=== PATIENT | male | born 1960 | race Two or more races ===

== ENCOUNTER → 2016-10-31 | Outpatient (REF) | payer OTHER | LOC: M LAB REF 08:58 | PROVIDERS: ATTEND Physician Assistant Medical | DX: J02.9 Acute pharyngitis, unspecified (principal) ==

== ENCOUNTER → 2017-07-20 | Outpatient (REF) | payer OTHER ==
[2017-07-22 14:14] LABS: PSA TOTAL 1.5 ng/mL (0.0-4.0)
== END ==
LOC: M LABDRAW1 15:52
DX: R97.20 Elevated prostate specific antigen [PSA] (principal)

== ENCOUNTER → 2017-10-16 | Outpatient (CLI) | payer BC, OTHER ==
[2017-10-16 17:47] LABS: ALBUMIN 4.2 GM/DL (3.2-5.2); ALBUMIN/GLOBULIN RATIO 1.68 (1.00-1.93); ALKALINE PHOSPHATASE 60 U/L (45-117); ALT/SGPT 29 U/L (12-78); ANION GAP 8 MEQ/L (8-16); AST/SGOT 19 U/L (7-37); BILIRUBIN,TOTAL 0.5 MG/DL (0.2-1.0); BLOOD UREA NITROGEN 16 MG/DL (7-18); CALCIUM LEVEL 8.8 MG/DL (8.5-10.1); CARBON DIOXIDE LEVEL 26 MEQ/L (21-32); CHLORIDE LEVEL 107 MEQ/L (98-107); CHOLESTEROL LEVEL 151 MG/DL (<200); CHOLESTEROL RISK RATIO 2.013 (<5); CREATININE FOR GFR 0.86 MG/DL (0.70-1.30); GLOMERULAR FILTRATION RATE > 60.0 (>56); GLUCOSE, FASTING 90 MG/DL (70-100); HDL CHOLESTEROL 75 MG/DL (>40); LDL CHOLESTEROL 65.6 MG/DL (<100); NON-HDL-C 76 MG/DL; POTASSIUM SERUM 4.6 MEQ/L (3.5-5.1); SODIUM LEVEL 141 MEQ/L (136-145); TOTAL PROTEIN 6.7 GM/DL (6.4-8.2); TRIGLYCERIDES LEVEL 52 MG/DL (<150)
[2017-10-16 17:54] LABS: BASO # 0.1 10^3/uL (0.0-0.2); BASO % 1.3 % (0.0-1.0); EOS # 0.2 10^3/uL (0.0-0.50); EOS % 2.2 % (0.0-3.0); HEMATOCRIT 45.8 % (42.0-52.0); HEMOGLOBIN 14.4 g/dl (13.5-17.5); IMMATURE GRANULOCYTE % 0.5 % (0-3.0); LYMPH # 1.5 10^3/uL (1.5-4.5); LYMPH % 18.5 % (24.0-44.0); MEAN CORPUSCULAR HEMOGLOBIN 26.9 pg (27.0-33.0); MEAN CORPUSCULAR HGB CONC 31.4 g/dl (32.0-36.5); MEAN CORPUSCULAR VOLUME 85.6 fl (80.0-96.0); MONO # 0.7 10^3/uL (0.0-0.8); MONO % 8.8 % (0.0-5.0); NEUTROPHILS # 5.4 10^3/uL (1.8-7.7); NEUTROPHILS % 68.7 % (36.0-66.0); PLATELET COUNT, AUTOMATED 278 10^3/uL (150-450); RED BLOOD COUNT 5.35 10^6/uL (4.30-6.10); RED CELL DISTRIBUTION WIDTH 16.1 % (11.5-14.5); WHITE BLOOD COUNT 7.8 10^3/uL (4.0-10.0)
[2017-10-16 18:08] LABS: ESTIMATED AVERAGE GLUCOSE 111 MG/DL (60-110); HEMOGLOBIN A1c 5.5 %
== END ==
LOC: M WUC 09:58
DX: I10 Essential (primary) hypertension (principal); R73.01 Impaired fasting glucose; J44.9 Chronic obstructive pulmonary disease, unspecified

== ENCOUNTER 2017-12-09 08:33 | Day surgery (SDC) | payer BC, OTHER ==
[~2017-12-09 08:33] MED LIST: PROPOFOL 200 MG/20 ML VIAL As Ordered
[2017-12-09] MEDS ORDERED: NS 1,000 ML IV (10:00)
== END 2017-12-09 11:15 | disposition home or self-care (01) ==
LOC: M OPP 08:33
DX: Z12.11 Encounter for screening for malignant neoplasm of colon (principal); D12.3 Benign neoplasm of transverse colon; Z86.010 Personal history of colon polyps; I10 Essential (primary) hypertension; E78.00 Pure hypercholesterolemia, unspecified; K21.9 Gastro-esophageal reflux disease without esophagitis; F41.9 Anxiety disorder, unspecified; F32.9 Major depressive disorder, single episode, unspecified; F17.210 Nicotine dependence, cigarettes, uncomplicated; Z79.899 Other long term (current) drug therapy
CPT/HCPCS: 45385

== ENCOUNTER → 2018-04-21 | Outpatient (CLI) | payer BC, OTHER ==
[~2018-04-21] MED LIST changes: +AMLO10TA5 PO; +ATOR1TAB19 PO; +DIAZ10TA2 PO; +DULO1CAP3 PO; +OMEP20CA3 PO; -PROPOFOL 200 MG/20 ML VIAL As Ordered; +TRIA37.53 PO
--- NOTE | 2018-04-25 13:40 | REP ---
Low-dose lung cancer screening CT study of the chest: Repeat dictation. History: Nicotine dependence. Comparison is made of multiple prior studies, the most recent of which is from October 08, 2014. The most remote prior CT study is from September 12, 2012. CT findings: Preliminary digital anesthesia resident radiograph shows healing rib fractures on the right. These are confirmed on axial CT images. The lungs are hyperinflated. CT images demonstrate healing or healed rib fractures on the left as well. No significant pulmonary nodule is appreciated. There is a stable lymph node in the aorticopulmonary window region of the mediastinum. No evidence of adenopathy. The exam is otherwise unremarkable. Impression: Multiple old bilateral rib fractures. Hyperinflation consistent with COPD. Lung-RADS category 2 benign findings. Repeat screening exam suggested in 1 year. Electronically Signed by Adi Stock MD 04/25/2018 07:48 P
== END ==
LOC: M RAD 11:03
PROVIDERS: ATTEND Internal Medicine Pulmonary Disease
DX: Z12.2 Encounter for screening for malignant neoplasm of respiratory organs (principal); F17.218 Nicotine dependence, cigarettes, with other nicotine-induced disorders

== ENCOUNTER → 2018-07-13 | Outpatient (REF) | payer OTHER ==
[~2018-07-13] MED LIST changes: +BREO1INH3 INH; +INCR1INH INH
[2018-07-13 15:58] LABS: HEMATOCRIT 42.2 % (42.0-52.0); HEMOGLOBIN 13.6 g/dl (13.5-17.5); MEAN CORPUSCULAR HGB CONC 32.2 g/dl (32.0-36.5); MEAN CORPUSCULAR VOLUME 80.5 fl (80.0-96.0); PLATELET COUNT, AUTOMATED 256 10^3/uL (150-450); RED BLOOD COUNT 5.24 10^6/uL (4.30-6.10); WHITE BLOOD COUNT 6.6 10^3/uL (4.0-10.0)
[2018-07-13 16:09] LABS: INR 0.98; PROTHROMBIN TIME 13.1 SECONDS (12.1-14.4)
[2018-07-13 16:10] LABS: PARTIAL THROMBOPLASTIN TIME 26.9 SECONDS (25.4-37.6)
[2018-07-13 16:25] LABS: POTASSIUM SERUM 4.2 MEQ/L (3.5-5.1)
== END ==
LOC: M LABDRAW1 14:25
PROVIDERS: ATTEND Orthopaedic Surgery Sports Medicine
DX: Z01.812 Encounter for preprocedural laboratory examination (principal)

== ENCOUNTER → 2018-07-14 | Outpatient (CLI) | payer OTHER ==
[2018-07-14 16:52] LABS: ALT/SGPT 63 U/L (12-78); BILIRUBIN,TOTAL 0.4 MG/DL (0.2-1.0); BLOOD UREA NITROGEN 13 MG/DL (7-18); CALCIUM LEVEL 8.8 MG/DL (8.5-10.1); CARBON DIOXIDE LEVEL 30 MEQ/L (21-32); CHLORIDE LEVEL 105 MEQ/L (98-107); CHOLESTEROL LEVEL 131 MG/DL (<200); CHOLESTEROL RISK RATIO 2.015 (<5); CREATININE FOR GFR 0.87 MG/DL (0.70-1.30); GLOMERULAR FILTRATION RATE > 60.0 (>56); GLUCOSE, FASTING 98 MG/DL (70-100); HDL CHOLESTEROL 65 MG/DL (>40); LDL CHOLESTEROL 59 MG/DL (<100); NON-HDL-C 66 MG/DL; POTASSIUM SERUM 4.4 MEQ/L (3.5-5.1); PROSTATIC SPECIFIC AG MONITOR 1.12 NG/ML (< 4.00); SODIUM LEVEL 141 MEQ/L (136-145); TOTAL PROTEIN 6.9 GM/DL (6.4-8.2); TRIGLYCERIDES LEVEL 35 MG/DL (<150)
[2018-07-14 17:28] LABS: BASO # 0.1 10^3/uL (0.0-0.2); BASO % 1.1 % (0.0-1.0); EOS # 0.1 10^3/uL (0.0-0.50); EOS % 1.3 % (0.0-3.0); HEMATOCRIT 43.4 % (42.0-52.0); HEMOGLOBIN 14.1 g/dl (13.5-17.5); MEAN CORPUSCULAR HEMOGLOBIN 26.5 pg (27.0-33.0); MEAN CORPUSCULAR HGB CONC 32.5 g/dl (32.0-36.5); MEAN CORPUSCULAR VOLUME 81.4 fl (80.0-96.0); MONO # 0.5 10^3/uL (0.0-0.8); MONO % 9.9 % (0.0-5.0); NEUTROPHILS # 3.8 10^3/uL (1.8-7.7); NEUTROPHILS % 69.5 % (36.0-66.0); PLATELET COUNT, AUTOMATED 267 10^3/uL (150-450); RED BLOOD COUNT 5.33 10^6/uL (4.30-6.10); WHITE BLOOD COUNT 5.5 10^3/uL (4.0-10.0)
[2018-07-14 17:56] LABS: HEMOGLOBIN A1c 5.9 %
== END ==
LOC: M WUC 11:57
PROVIDERS: ATTEND Family Medicine
DX: I10 Essential (primary) hypertension (principal)

== ENCOUNTER 2018-07-19 13:23 | Day surgery (SDC) | payer OTHER ==
[~2018-07-19] VITALS: Ht 180.3 cm; Wt 112.5 kg
[2018-07-19] MEDS ORDERED: BUPIVACAINE HCL 0.25% 10 ML VIAL ONE (13:24)
[2018-07-19] MEDS ORDERED: LIDOCAINE 1% MDV 20ML VIAL ONE (13:24)
[2018-07-19] MEDS ORDERED: LR 1,000 ML IV ONE (13:30)
[2018-07-19] MEDS ORDERED: PROPOFOL 200 MG/20 ML VIAL As Ordered ONE (13:45)
[2018-07-19] MEDS ORDERED: ROCURONIUM BROMIDE 50 MG/5 ML VIAL As Ordered ONE (13:45)
[2018-07-19] MEDS ORDERED: fentaNYL 100 MCG/2 ML INJECTION (J3010) As Ordered ONE ×2 (13:45→14:01)
[2018-07-19] MEDS ORDERED: ONDANSETRON 4MG/2ML VIAL (J2405) As Ordered ONE (13:45)
[2018-07-19] MEDS ORDERED: LIDOCAINE 2% INJ 100 MG/5 ML SDV (FOR ANES.) As Ordered ONE (13:45)
[2018-07-19] MEDS ORDERED: dexameTHASONE 4 MG/ML 1ML VIAL (J1100) As Ordered ONE (13:45)
[2018-07-19] MEDS ORDERED: MIDAZOLAM INJ 2 MG/2 ML VIAL (J2250) As Ordered ONE ×2 (13:45→14:01)
[2018-07-19] MEDS ORDERED: BUPIVACAINE HCL 0.25% 30 ML VIAL As Ordered ONE ×2 (14:11→14:26)
[2018-07-19] MEDS ORDERED: BUPIVACAINE HCL 0.25% 10 ML VIAL As Ordered ONE (14:14)
[2018-07-19] MEDS ORDERED: MIDAZOLAM INJ 2 MG/2 ML VIAL (J2250) IV ONE ×2 (15:15→15:30)
[2018-07-19] MEDS ORDERED: fentaNYL 100 MCG/2 ML INJECTION (J3010) IV ONE ×2 (15:15→15:30)
[2018-07-19] MEDS ORDERED: BUPIVACAINE/EPIN 0.25% 30 ML VIAL As Ordered ONE (15:15)
[2018-07-19] MEDS ORDERED: METOCLOPRAMIDE INJ 10MG/2ML VIAL (J2765) As Ordered ONE (15:35)
[2018-07-19] MEDS ORDERED: SUGAMMADEX SODIUM 500 MG/5 ML VIAL (BRIDION) As Ordered ONE (17:14)
[2018-07-19] MEDS ORDERED: METOCLOPRAMIDE INJ 10MG/2ML VIAL (J2765) IV PRN (18:00)
[2018-07-19] MEDS ORDERED: PROMETHAZINE INJ 25 MG/ML VIAL (J2550) IV PRN (18:00)
[2018-07-19] MEDS ORDERED: oxyCODONE 5MG TAB PO PRN (18:00)
[2018-07-19] MEDS ORDERED: LR 1,000 ML IV SCH ×2 (18:00)
[2018-07-19] MEDS ORDERED: fentaNYL 100 MCG/2 ML INJECTION (J3010) IV PRN (18:00)
--- NOTE | 2018-07-19 18:52 | RO ---
DATE OF PROCEDURE: 07/19/2018 PREOPERATIVE DIAGNOSIS: Right distal biceps tendon tear. POSTOPERATIVE DIAGNOSIS: Right distal biceps tendon tear. PLANNED PROCEDURE: Right distal biceps repair. PROCEDURE PERFORMED: Right distal biceps repair. SURGEON: Dawit De La Rosa MD CRYSTALIZER: None. HEAT TREATING FURNACE TENDER: Dr. Ford TYPE OF ANESTHESIA: General anesthetic plus a block. 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 We talked about the pros, cons, risks, benefits of going ahead with the repair. I reminded him again of the risks and benefits including but not limited to infection, pain, stiffness, bleeding, neurovascular injury, rerupture, anesthetic complications and . I marked the right arm and we proceeded with the case. DESCRIPTION OF PROCEDURE: The patient was brought to the operating theater. He was placed supine on the operating room table with a radiolucent arm table to the right side. Two grams IV Ancef was administered. General anesthesia was induced. Right upper extremity was prepped and draped the usual sterile fashion. Preoperative time-out was performed to confirm the site and the patient. Sterile 18-inch tourniquet was applied to the right upper extremity. Sterile Esmarch bandage was used to exsanguinate the arm, arm elevated, and the tourniquet inflated to 250 mmHg prior to the end of the case where it was taken down and bleeding checked. Prior to skin incision 7 mL of 0.35% Marcaine with 1, 100,000 epinephrine was also instilled in and around the planned incision site. I began by making a 3 inch incision centered over the volar proximal forearm two fingerbreadths distal to the elbow crease. I carried dissection down through skin and subcutaneous tissue. I identified the superficial venous plexus protected that throughout the case. I undermined this, dissected carefully, identified the distal end of the biceps. It was quite scarred down already and hypertrophic. I removed quite a bit of scar tissue and hypertrophic tissue from around the distal biceps tendon and mobilized it appropriately. I cleaned out the end of the stump as well. I then dissected down distally to the tuberosity. Ligated one crossing vein. I used Gomez retractors on either side of the proximal radius. I fully supinated the forearm as much as possible. I drilled the 3.2 mm spade tip drill tip across one cortex. I checked the position with fluoroscopy. It was a little proximal so I then elevated some more tissue distally with the siddiqui elevator. I then chose my site confirmed with fluoroscopy to be at the tuberosity. Tendon was whip stitched with the FiberLoop from the [employer] kit. With a Jer straight needle to whip stitch the tendon end. Tendon ends were passed through the button for the planned tension slide technique. The suture was locked prior to fully passing the stitch through the tendon, doubled back on itself. The tendon was sized to approximately 7.5 mm. I then overdrilled the wire with 8 mm drill and used the button maintenance and repair worker to insert the button across the distal end cortex. All the bone dust was thoroughly irrigated and suctioned out of the wound. Button was flipped and tendon delivered into the tunnel. I used the tension slide technique. I then passed the 7 mm x 10 mm screw from the Arthrex kit into the hole as well. Tension was down appropriately, fully seated the screw. I then used the Jer needle to pass the suture back out through the tendon one time and then lock it down as well with alternating 1/2 hitches. Sutures were cut short with a scalpel. Wound was again thoroughly irrigated with normal saline. Tourniquet was taken down. No obvious venous or arterial bleeding identified. Subcutaneous tissues closed with interrupted #3-0 Vicryl sutures. Skin was closed with running buried #4-0 Monocryl. Wound was cleaned with wet and dry dressing followed by application of Steri-Strips. Adaptic, sterile 4 x 8 gauze, with sterile cast padding was applied to the entire upper extremity in circumferential fashion. Arm was kept a little bit less flexion than 90 degrees. Plaster of niki back slab was applied the to the dorsal surface the forearm and overwrapped with two 6-inch Jose bandages. The patient was woken up from general anesthetic, transferred off the operating table and taken to postanesthetic care unit in stable condition. All sponge, needle, instrument counts were correct and there were no complications. ESTIMATED BLOOD LOSS: 15 mL. PLAN: The patient is to follow up with myself in clinic in 2 to 3 days, likely this Tuesday at 10 o'clock. He already has an appointment so hopefully I will see him then. He will elevate the arm and remain in a sling. The typical biceps postoperative protocol will be followed.
[2018-07-19 19:20] VITALS: BP 138/82
--- NOTE | 2018-07-20 08:20 | ECGEPIP ---
[facility] Test Date: 2018-07-19 Pat Name: CULLEN PIZARRO Department: Room: - Gender: Male Respiratory Care Assistant: JENNY : 1960 Requested By: JOSE JUAN Pina Order Number: [id number] Reading MD: Steven Hall Measurements Intervals [place] Rate: 64 P: 64 AL: 184 QRS: QRSD: 114 T: 65 QT: 393 QTc: 406 Interpretive Statements SINUS RHYTHM INCOMPLETE RIGHT BUNDLE BRANCH BLOCK Left axis deviation Electronically Signed on 07-20-2018 8:19:49 EDT by Steven Hall
--- NOTE | 2018-07-20 09:03 | REP ---
Right elbow: Single view. Limited study. History: For distal biceps repair. 5 seconds of fluoroscopy time is reported. Findings: A single AP radiograph of the right elbow documents a fixation device at the radial tuberosity and some postoperative gas. Electronically Signed by Adi Stock MD 07/20/2018 03:00 P
== END 2018-07-19 19:22 | disposition home or self-care (01) ==
LOC: M SDC 13:23
PROVIDERS: ATTEND Orthopaedic Surgery Sports Medicine
DX: S46.211A Strain of muscle, fascia and tendon of other parts of biceps, right arm, initial encounter (principal); I10 Essential (primary) hypertension; E78.5 Hyperlipidemia, unspecified; K21.9 Gastro-esophageal reflux disease without esophagitis; F41.9 Anxiety disorder, unspecified; F32.9 Major depressive disorder, single episode, unspecified; J44.9 Chronic obstructive pulmonary disease, unspecified; Z79.899 Other long term (current) drug therapy; F17.210 Nicotine dependence, cigarettes, uncomplicated; Y92.9 Unspecified place or not applicable; Y93.9 Activity, unspecified
CPT/HCPCS: 24342; 64415; 76000; 93005; C1713; J0690; J1100; J2250; J2405; J2765; J3010

== ENCOUNTER 2019-02-04 08:45 | Emergency (ER) | payer BC, OTHER ==
[~2019-02-04] VITALS: Ht 180.3 cm; Wt 123.3 kg
[~2019-02-04 08:45] MED LIST changes: -DULO1CAP3 PO; +DULO1CAP6 PO; +OMEP-172 PO; -OMEP20CA3 PO
[2019-02-04 08:46] VITALS: BP 162/98
--- NOTE | 2019-02-04 09:29 | REP ---
Clinical: Acute cough . Comparison: 10/16/2017 . Technique: PA and lateral. Findings: The mediastinum and cardiac silhouette are normal. The lung jones are clear and without acute consolidation, effusion, or pneumothorax. The skeletal structures are intact and normal. Impression: 1. No acute cardiopulmonary process. Electronically Signed by Favian Larkin MD 02/04/2019 09:20 A
--- NOTE | 2019-02-04 09:40 | REP ---
Clinical: Trauma. Fall. Technique: AP, lateral, bilateral oblique and sunrise views of the left knee. Findings: Generalized age-related changes appreciated. No acute fracture or dislocation. No effusion. Impression: No acute fracture or dislocation. Electronically Signed by Favian Larkin MD 02/04/2019 09:31 A
[2019-02-04 09:45] LABS: HEMATOCRIT 46.3 % (42.0-52.0); HEMOGLOBIN 15.1 g/dl (13.5-17.5); MEAN CORPUSCULAR HGB CONC 32.6 g/dl (32.0-36.5); MEAN CORPUSCULAR VOLUME 85.9 fl (80.0-96.0); PLATELET COUNT, AUTOMATED 326 10^3/uL (150-450); RED BLOOD COUNT 5.39 10^6/uL (4.30-6.10); WHITE BLOOD COUNT 13.4 10^3/uL (4.0-10.0)
[2019-02-04 10:20] LABS: INFLUENZA A AMPLIFICATION NEGATIVE (NEGATIVE); INFLUENZA B AMPLIFICATION NEGATIVE (NEGATIVE)
--- NOTE | 2019-02-04 15:50 | ECGEPIP ---
[facility] - ED Test Date: 2019-02-04 Pat Name: CULLEN PIZARRO Department: Room: - Gender: Male Reconciliation Analyst: : 1960 Requested By: DIMA Baeza Order Number: [id number] Reading MD: Clemente Garcia Measurements Intervals [place] Rate: 74 P: 45 ND: 177 QRS: -51 QRSD: 110 T: 50 QT: 377 QTc: 419 Interpretive Statements SINUS RHYTHM INCOMPLETE RIGHT BUNDLE BRANCH BLOCK LEFT ANTERIOR FASCICULAR BLOCK SIMILAR TO 07/19/18 Electronically Signed on 02-04-2019 15:50:45 EST by Clemente Garcia
== END 2019-02-04 11:18 | disposition home or self-care (01) ==
LOC: M ED 08:45
DX: S80.02XA Contusion of left knee, initial encounter (principal); W18.39XA Other fall on same level, initial encounter; Y92.018 Other place in single-family (private) house as the place of occurrence of the external cause; I45.19 Other right bundle-branch block; I10 Essential (primary) hypertension; J44.9 Chronic obstructive pulmonary disease, unspecified; E78.5 Hyperlipidemia, unspecified; K21.9 Gastro-esophageal reflux disease without esophagitis; Z79.899 Other long term (current) drug therapy; F17.210 Nicotine dependence, cigarettes, uncomplicated

== ENCOUNTER → 2019-02-27 | Outpatient (CLI) | payer BC, OTHER ==
[~2019-02-27] MED LIST changes: -OMEP-172 PO; +OMEP1CAP73 PO
--- NOTE | 2019-02-27 14:50 | REP ---
MRI left knee without contrast: History: Effusion left knee. Comparison radiographs February 04, 2019. Technique: Axial, coronal and sagittal imaging planes are utilized. T1 and T2-weighted scans were obtained in the usual fashion. MRI findings: MR images confirm the presence of a small effusion. There is a Perez's cyst in the posteromedial popliteal soft tissues with some adjacent edema. Some extra-articular subcutaneous edema is seen about the medial aspect of the knee. There is no occult fracture. There is thickening and increased signal intensity along the course and within the medial collateral ligament consistent with strain injury to this structure. Posterior and anterior cruciate ligaments appear intact. No disruption of the lateral collateral ligament components is seen. Patellar and quadriceps tendons have an intact appearance. There is subtle marrow edema beneath a focal fissure like full-thickness defect in the articular cartilage of the superior pole of the central patella. There is moderate partial thickness irregularity of the lateral patellar facet articular cartilage. There is a subtle area of marrow edema in the posterior lateral tibial plateau and there is articular cartilage fissuring overlying this region. This is at the level of the posterior horn of the lateral meniscus which appears intact. There is chondromalacia associated with subarticular marrow edema in the anterior aspect of the lateral femoral condyle. No medial meniscal tear is seen. 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 Partial tear pattern medial collateral ligament. Electronically Signed by Adi Stock MD 02/27/2019 04:39 P
== END ==
LOC: M RAD 13:09
PROVIDERS: ATTEND Orthopaedic Surgery Sports Medicine
DX: M25.462 Effusion, left knee (principal)

== ENCOUNTER → 2019-08-10 | Outpatient (CLI) | payer BC, OTHER ==
[2019-08-10 12:16] LABS: HEMATOCRIT 41.8 % (42.0-52.0); HEMOGLOBIN 13.5 g/dl (13.5-17.5); MEAN CORPUSCULAR HEMOGLOBIN 28.1 pg (27.0-33.0); MEAN CORPUSCULAR HGB CONC 32.3 g/dl (32.0-36.5); MEAN CORPUSCULAR VOLUME 86.9 fl (80.0-96.0); PLATELET COUNT, AUTOMATED 234 10^3/uL (150-450); RED BLOOD COUNT 4.81 10^6/uL (4.30-6.10); WHITE BLOOD COUNT 5.4 10^3/uL (4.0-10.0)
[2019-08-10 12:39] LABS: HEMOGLOBIN A1c 6.2 %
[2019-08-10 12:55] LABS: ALBUMIN 3.7 GM/DL (3.2-5.2); ALT/SGPT 43 U/L (12-78); BILIRUBIN,TOTAL 0.4 MG/DL (0.2-1.0); BLOOD UREA NITROGEN 19 MG/DL (7-18); CALCIUM LEVEL 8.6 MG/DL (8.5-10.1); CARBON DIOXIDE LEVEL 29 MEQ/L (21-32); CHLORIDE LEVEL 107 MEQ/L (98-107); CHOLESTEROL LEVEL 173 MG/DL (<200); CHOLESTEROL RISK RATIO 2.982 (<5); CREATININE FOR GFR 0.73 MG/DL (0.70-1.30); GLOMERULAR FILTRATION RATE > 60.0 (>56); GLUCOSE, FASTING 102 MG/DL (70-100); HDL CHOLESTEROL 58 MG/DL (>40); LDL CHOLESTEROL 104 MG/DL (<100); NON-HDL-C 115 MG/DL; POTASSIUM SERUM 4.4 MEQ/L (3.5-5.1); PROSTATIC SPECIFIC AG MONITOR 0.94 NG/ML (< 4.00); SODIUM LEVEL 140 MEQ/L (136-145); TOTAL PROTEIN 6.5 GM/DL (6.4-8.2); TRIGLYCERIDES LEVEL 55 MG/DL (<150)
== END ==
LOC: M WUC 11:06
PROVIDERS: ATTEND Family Medicine
DX: R73.01 Impaired fasting glucose (principal); R97.20 Elevated prostate specific antigen [PSA]; I10 Essential (primary) hypertension

== ENCOUNTER → 2019-08-14 | Outpatient (CLI) | payer BC, OTHER ==
[~2019-08-14] MED LIST changes: -AMLO10TA5 PO; +AMLO1TAB25 PO
--- NOTE | 2019-08-14 11:51 | REP ---
REASON: Tobacco abuse. COMPARISON: Multiple, the latest 04/21/2018 As per the protocol, only lung window images were sent to the read station for interpretation. There are a few new areas of curvilinear and vague opacities bilaterally. There are no new abnormal nodules or masses. Grossly, the cardiomediastinal silhouette and imaged upper abdomen are unchanged. Grossly, the imaged osseous structures are unchanged. IMPRESSION: Likely subsegmental atelectatic changes. Lung RADS category [address] recommended. Electronically Signed by Jose Perales DO 08/14/2019 05:24 P
== END ==
LOC: M RAD 06:49
PROVIDERS: ATTEND Internal Medicine Pulmonary Disease
DX: F17.218 Nicotine dependence, cigarettes, with other nicotine-induced disorders (principal)

== ENCOUNTER → 2020-05-20 | Outpatient (CLI) | payer BC, OTHER ==
--- NOTE | 2020-05-20 09:49 | REP ---
INDICATION: PAIN IN RIGHT UPPER ARM. COMPARISON: None. TECHNIQUE: Three views of the shoulder were performed. FINDINGS: The acromioclavicular and glenohumeral relationships are within normal limits. There is no acute fracture or destructive osseous lesion involving the shoulder. Age undetermined but seemingly old healing right-sided rib fractures are noted. The exact age of these fractures cannot be determined by this exam. IMPRESSION: Right-sided rib fractures as described above. <Electronically signed by Jose Perales > 05/20/20 0911
--- NOTE | 2020-05-20 09:59 | REP ---
INDICATION: PAIN IN RIGHT UPPER ARM COMPARISON: 02/04/2019 TECHNIQUE: PA and lateral. FINDINGS: The mediastinum and cardiac silhouette are normal. The lung jones are clear and without acute consolidation, effusion, or pneumothorax. The skeletal structures are intact and normal. IMPRESSION: No acute cardiopulmonary process. <Electronically signed by Favian Larkin > 05/20/20 0955
== END ==
LOC: M WUC 09:15
PROVIDERS: ATTEND Family Medicine
DX: M79.621 Pain in right upper arm (principal)

== ENCOUNTER → 2020-05-26 | Outpatient (CLI) | payer BC, OTHER ==
--- NOTE | 2020-05-26 10:55 | REP ---
INDICATION: F/U FOR HEALING OF MULTIPLE FX OF RIBS COMPARISON: None. TECHNIQUE: Frontal view of the chest with multiple views of the hemithorax. FINDINGS: Frontal view of the chest demonstrates no acute cardiopulmonary process, contusion, effusion, or pneumothorax. Multiple views of the right hemithorax demonstrates minimally displaced healing lateral 6-10th rib fractures. IMPRESSION: Healing right rib fractures. <Electronically signed by Favian Larkin > 05/26/20 [id number]
== END ==
LOC: M WUC 09:57
PROVIDERS: ATTEND Family Medicine
DX: S22.41XD Multiple fractures of ribs, right side, subsequent encounter for fracture with routine healing (principal); W18.30XD Fall on same level, unspecified, subsequent encounter; Y92.009 Unspecified place in unspecified non-institutional (private) residence as the place of occurrence of the external cause

== ENCOUNTER → 2020-08-01 | Outpatient (CLI) | payer BC, OTHER ==
[2020-08-01 16:22] LABS: HEMOGLOBIN 13.2 g/dl (13.5-17.5); MEAN CORPUSCULAR HEMOGLOBIN 28.6 pg (27.0-33.0); MEAN CORPUSCULAR HGB CONC 32.2 g/dl (32.0-36.5); MEAN CORPUSCULAR VOLUME 88.7 fl (80.0-96.0); PLATELET COUNT, AUTOMATED 249 10^3/uL (150-450); RED BLOOD COUNT 4.62 10^6/uL (4.30-6.10); WHITE BLOOD COUNT 7.8 10^3/uL (4.0-10.0)
[2020-08-01 16:58] LABS: ALBUMIN 4.1 GM/DL (3.2-5.2); ALT/SGPT 53 U/L (12-78); BILIRUBIN,TOTAL 0.5 MG/DL (0.2-1.0); BLOOD UREA NITROGEN 15 MG/DL (7-18); CALCIUM LEVEL 8.7 MG/DL (8.5-10.1); CARBON DIOXIDE LEVEL 27 MEQ/L (21-32); CHLORIDE LEVEL 104 MEQ/L (98-107); CHOLESTEROL LEVEL 142 MG/DL (<200); CHOLESTEROL RISK RATIO 2.253 (<5); GLOMERULAR FILTRATION RATE > 60.0 (>56); GLUCOSE, FASTING 99 MG/DL (70-100); HDL CHOLESTEROL 63 MG/DL (>40); LDL CHOLESTEROL 66 MG/DL (<100); NON-HDL-C 79 MG/DL; POTASSIUM SERUM 3.9 MEQ/L (3.5-5.1); SODIUM LEVEL 138 MEQ/L (136-145); TOTAL PROTEIN 6.8 GM/DL (6.4-8.2); TRIGLYCERIDES LEVEL 64 MG/DL (<150)
[2020-08-01 17:31] LABS: HEMOGLOBIN A1c 5.9 %
== END ==
LOC: M WUC 13:39
PROVIDERS: ATTEND Family Medicine
DX: Z12.5 Encounter for screening for malignant neoplasm of prostate (principal); R73.01 Impaired fasting glucose; Z00.00 Encounter for general adult medical examination without abnormal findings

== ENCOUNTER → 2020-10-02 | Outpatient (CLI) | payer BC, OTHER ==
--- NOTE | 2020-10-02 13:24 | REP ---
INDICATION: HX OF NICOTINE DEPENDENCE. COMPARISON: Multiple the latest 08/14/2019 TECHNIQUE: Axial noncontrast images from the thoracic inlet to the upper abdomen using low-dose lung screening technique (LDCT as per the protocol only lung window images were sent to the read station for interpretation. FINDINGS: The lung jones are unchanged. There are no new abnormal nodules, masses, or opacities. Grossly, the mediastinum and pulmonary gianluca are unchanged. Grossly, the imaged upper abdomen and imaged osseous structures are unchanged. IMPRESSION: Stable lung rads category 2 low-dose screening CT examination of the lungs. <Electronically signed by Jose Perales > 10/02/20 3106
== END ==
LOC: M RAD 12:38
PROVIDERS: ATTEND Internal Medicine Pulmonary Disease
DX: Z87.891 Personal history of nicotine dependence (principal)

== ENCOUNTER 2021-08-09 12:36 | Emergency (ER) | payer BC, OTHER ==
[~2021-08-09] VITALS: Ht 180.3 cm; Wt 122.2 kg
[~2021-08-09 12:36] MED LIST changes: -TRIA37.53 PO; +TRIA37.577 PO
[2021-08-09] MEDS ORDERED: ECOT81TA5 PO (12:56)
[2021-08-09 13:24] LABS: HEMATOCRIT 36.2 % (42.0-52.0); HEMOGLOBIN 11.7 g/dl (13.5-17.5); MEAN CORPUSCULAR HEMOGLOBIN 25.4 pg (27.0-33.0); MEAN CORPUSCULAR HGB CONC 32.3 g/dl (32.0-36.5); MEAN CORPUSCULAR VOLUME 78.7 fl (80.0-96.0); PLATELET COUNT, AUTOMATED 453 10^3/uL (150-450); WHITE BLOOD COUNT 16.2 10^3/uL (4.0-10.0)
[2021-08-09 13:59] LABS: BLOOD UREA NITROGEN 10 MG/DL (7-18); CALCIUM LEVEL 8.7 MG/DL (8.5-10.1); CARBON DIOXIDE LEVEL 27 MEQ/L (21-32); CHLORIDE LEVEL 97 MEQ/L (98-107); CREATININE FOR GFR 0.82 MG/DL (0.70-1.30); GLOMERULAR FILTRATION RATE > 60.0 (>56); GLUCOSE, FASTING 103 MG/DL (70-100); POTASSIUM SERUM 4.2 MEQ/L (3.5-5.1); SODIUM LEVEL 134 MEQ/L (136-145)
[2021-08-09] MEDS ORDERED: ISOVUE-370 76% 100ML VIAL As Ordered ONE (17:50)
[2021-08-09 18:19] LABS: RSV AMPLIFICATION NEGATIVE (NEGATIVE)
[2021-08-09] MEDS ORDERED: FERR325T3 PO (21:29)
[2021-08-09 21:44] VITALS: BP 140/82
[2021-08-09 21:56] LABS: FERRITIN 206 NG/ML (26-388); IRON (FE) 11 UG/DL (65-175); PERCENT SATURATION 3.7 % (19.7-50.0); TOTAL IRON BINDING CAPACITY 295 UG/DL (250-450)
== END 2021-08-09 21:47 | disposition home or self-care (01) ==
LOC: M ED 12:36
DX: R91.1 Solitary pulmonary nodule (principal); R04.2 Hemoptysis; D64.9 Anemia, unspecified; J90 Pleural effusion, not elsewhere classified; I10 Essential (primary) hypertension; J44.9 Chronic obstructive pulmonary disease, unspecified; F33.9 Major depressive disorder, recurrent, unspecified; F41.9 Anxiety disorder, unspecified; Z79.899 Other long term (current) drug therapy; Z79.82 Long term (current) use of aspirin
CPT/HCPCS: 36415; 71046; 71275; 80048; 82728; 83550; 85027; 87631; 93005; 99284; Q9967

== ENCOUNTER → 2021-10-29 | Outpatient (CLI) | payer BC, OTHER ==
[~2021-10-29] MED LIST changes: +ECOT81TA5 PO; +FERR325T3 PO
== END ==
LOC: M RAD 09:30
PROVIDERS: ATTEND Internal Medicine Critical Care Medicine
DX: R91.8 Other nonspecific abnormal finding of lung field (principal)

== ENCOUNTER → 2021-11-06 | Outpatient (CLI) | payer BC, OTHER ==
[~2021-11-06] MED LIST changes: +LIDOCAINE 1% MDV 20ML VIAL As Ordered ONE
[2021-11-06 12:15] VITALS: BP 136/89
[2021-11-06 12:40] LABS: APPEARANCE, BODY FLUID TURBID (CLEAR); SOURCE, BODY FLUID PLEURAL
[2021-11-06 12:42] LABS: PLEURAL FL COLOR AMBER (COLORLESS)
[2021-11-06 12:50] LABS: SOURCE, BODY FLUID ALBUMIN PLEURAL
[2021-11-06 13:23] LABS: CHOLESTEROL, BODY FLUID < 50 MG/DL (NOT ESTABLISHED); LDH, BODY FLUID 7574 U/L (NOT ESTABLISHED); SOURCE, BODY FLUID CHOL PLEURAL; SOURCE, BODY FLUID LDH PLEURAL; SOURCE, BODY FLUID TOT PROTEIN PLEURAL; TOTAL PROTEIN, BODY FLUID 6.5 G/DL (NOT ESTABLISHED)
== END ==
LOC: M IRPRO 09:11
PROVIDERS: ATTEND Internal Medicine Critical Care Medicine
DX: J90 Pleural effusion, not elsewhere classified (principal)

== ENCOUNTER → 2021-11-18 | Outpatient (CLI) | payer BC, OTHER ==
[~2021-11-18] MED LIST changes: -LIDOCAINE 1% MDV 20ML VIAL As Ordered ONE
== END ==
LOC: M PLAIMG 08:59
PROVIDERS: ATTEND Internal Medicine Critical Care Medicine
DX: R91.8 Other nonspecific abnormal finding of lung field (principal)

== ENCOUNTER → 2021-12-15 | Outpatient (CLI) | payer BC, OTHER | LOC: M RAD 14:38 | PROVIDERS: ATTEND Internal Medicine Critical Care Medicine | DX: J90 Pleural effusion, not elsewhere classified (principal) ==

== ENCOUNTER 2022-01-06 15:37 | Inpatient (IN) | payer BC, OTHER ==
[~2022-01-06] VITALS: Ht 180.3 cm; Wt 134.8 kg
[~2022-01-06 15:37] MED LIST changes: +ACETAMINOPHEN TAB 650MG DOSE (2X325MG) PO PRN; +BISACODYL 10 MG SUPP PR PRN; +DOCUSATE SODIUM 100MG CAPSULE PO SCH
[2022-01-07] MEDS ORDERED: DOCUSATE SODIUM 100MG CAPSULE PO SCH (09:00)
[2022-01-07] MEDS ORDERED: PANTOPRAZOLE 40MG TAB (PROTONIX) PO SCH (09:00)
[2022-01-07] MEDS ORDERED: MOM 30ML SUSPENSION UDC PO SCH (09:00)
[2022-01-07] MEDS ORDERED: ONDANSETRON 4MG 2ML VIAL IV PRN (10:00)
[2022-01-07] MEDS ORDERED: LEVALBUTEROL 1.25MG 0.5ML CONCENTRATE NEB NEB PRN (10:00)
[2022-01-07] MEDS ORDERED: PERCOCET 5MG/325MG TAB PO PRN ×2 (10:00)
[2022-01-07] MEDS ORDERED: BISACODYL 10 MG SUPP PR PRN (10:05)
[2022-01-07] MEDS ORDERED: ACETAMINOPHEN TAB 650MG DOSE (2X325MG) PO PRN (10:05)
[2022-01-07 10:32] VITALS: BP 148/62
[2022-01-07 10:51] LABS: BASO # 0.1 10^3/uL (0.0-0.2); BASO % 0.9 % (0.0-1.0); EOS # 0.1 10^3/uL (0.0-0.5); EOS % 1.2 % (0.0-3.0); HEMOGLOBIN 15.4 g/dl (13.5-17.5); LYMPH % 13.4 % (24.0-44.0); MEAN CORPUSCULAR HEMOGLOBIN 27.6 pg (27.0-33.0); MEAN CORPUSCULAR HGB CONC 33.5 g/dl (32.0-36.5); MEAN CORPUSCULAR VOLUME 82.4 fl (80.0-96.0); MONO # 0.7 10^3/uL (0.0-0.8); MONO % 9.3 % (2.0-8.0); NEUTROPHILS # 5.6 10^3/uL (1.5-8.5); NEUTROPHILS % 74.7 % (36.0-66.0); PLATELET COUNT, AUTOMATED 193 10^3/uL (150-450); RED BLOOD COUNT 5.58 10^6/uL (4.30-6.10); WHITE BLOOD COUNT 7.5 10^3/uL (4.0-10.0)
[2022-01-07] MEDS: LEVALBUTEROL 1.25MG 0.5ML CONCENTRATE NEB NEB SCH ×2 (10:58→13:52)
[2022-01-07 11:14] LABS: BLOOD UREA NITROGEN 13 MG/DL (9-23); CALCIUM LEVEL 9.1 MG/DL (8.3-10.6); CARBON DIOXIDE LEVEL 25 MMOL/L (20-31); CHLORIDE LEVEL 100 MMOL/L (98-107); CREATININE FOR GFR 0.72 MG/DL (0.70-1.30); GLOMERULAR FILTRATION RATE > 60.0 (>49); GLUCOSE, FASTING 112 MG/DL (74-106); SODIUM LEVEL 136 MMOL/L (136-145)
[2022-01-07] MEDS ORDERED: XALA0.007 OU (11:40)
[2022-01-07] MEDS ORDERED: DULO1CAP5 PO (11:44)
[2022-01-07] MEDS ORDERED: HOME MED LIST COMPLETE! XX SCH (11:50)
[2022-01-07 11:51] VITALS: BP 126/72
[2022-01-07] MEDS ORDERED: KETOROLAC 30 MG/ML 1ML VIAL IV SCH (12:00)
[2022-01-07] MEDS ORDERED: HEPARIN SOD (PORCINE) 5000UNITS/ML 1ML VIAL/SYRINGE SC SCH (21:00)
[2022-01-08] MEDS ORDERED: FLUBLOK(EGG FREE)(QUAD)INFLUENZA VACC 0.5ML SYRINGE 18YRS & OLDER IM.IMMUN ONE (09:00)
== END 2022-01-07 13:57 | disposition home or self-care (01) | DRG 143 ==
LOC: M ED INP 01-07 09:50 → M PCU 01-07 09:58
PROVIDERS: ADMIT Thoracic Surgery (Cardiothoracic Vascular Surgery); ATTEND Thoracic Surgery (Cardiothoracic Vascular Surgery)
DX: J90 Pleural effusion, not elsewhere classified (principal); I10 Essential (primary) hypertension; J44.9 Chronic obstructive pulmonary disease, unspecified; E78.5 Hyperlipidemia, unspecified; Z87.891 Personal history of nicotine dependence; Z79.899 Other long term (current) drug therapy

== ENCOUNTER → 2022-03-22 | Outpatient (CLI) | payer BC, OTHER ==
[~2022-03-22] MED LIST changes: -ACETAMINOPHEN TAB 650MG DOSE (2X325MG) PO PRN; -BISACODYL 10 MG SUPP PR PRN; -DOCUSATE SODIUM 100MG CAPSULE PO SCH; +DULO1CAP5 PO; +XALA0.007 OU
== END ==
LOC: M PLAIMG 10:51
PROVIDERS: ATTEND Internal Medicine Critical Care Medicine
DX: J90 Pleural effusion, not elsewhere classified (principal)

== ENCOUNTER → 2022-12-14 | Outpatient (CLI) | payer BC, OTHER | LOC: M RAD 15:26 | PROVIDERS: ATTEND Nurse Practitioner Family | DX: L40.0 Psoriasis vulgaris (principal); Z79.899 Other long term (current) drug therapy; Z51.81 Encounter for therapeutic drug level monitoring ==

== ENCOUNTER 2023-02-22 06:54 | Day surgery (SDC) | payer BC, OTHER ==
[~2023-02-22] VITALS: Ht 180.3 cm; Wt 138.1 kg
[~2023-02-22 06:54] MED LIST changes: +NS 1,000 ML IV ONE; +VENTAER INH
[2023-02-22] MEDS ORDERED: propofoL 200 MG/20 ML VIAL As Ordered ONE ×3 (07:55→08:31)
[2023-02-22 08:24] VITALS: TEMP 96.8
[2023-02-22 08:41] VITALS: BP 145/74; O2SAT 95
== END 2023-02-22 08:52 | disposition home or self-care (01) ==
LOC: M OPP 06:54
PROVIDERS: ATTEND Internal Medicine Gastroenterology
DX: Z12.11 Encounter for screening for malignant neoplasm of colon (principal); Z86.010 Personal history of colon polyps; D12.2 Benign neoplasm of ascending colon; D12.5 Benign neoplasm of sigmoid colon; K64.8 Other hemorrhoids; F17.220 Nicotine dependence, chewing tobacco, uncomplicated; Z79.02 Long term (current) use of antithrombotics/antiplatelets; Z79.51 Long term (current) use of inhaled steroids; Z79.52 Long term (current) use of systemic steroids; Z79.82 Long term (current) use of aspirin; Z79.899 Other long term (current) drug therapy

== ENCOUNTER → 2023-04-18 | Outpatient (CLI) | payer BC ==
[~2023-04-18] MED LIST changes: -NS 1,000 ML IV ONE
== END ==
LOC: M RAD 14:04
PROVIDERS: ATTEND Internal Medicine Critical Care Medicine
DX: J44.9 Chronic obstructive pulmonary disease, unspecified (principal)

== ENCOUNTER → 2023-06-01 | Outpatient (CLI) | payer BC, MEDICARE | LOC: M SOG 09:14 | PROVIDERS: ATTEND Physician Assistant | DX: M79.672 Pain in left foot (principal) ==

== ENCOUNTER → 2023-06-27 | Outpatient (CLI) | payer MEDICARE, BC | LOC: M SLEEP HO 11:24 | PROVIDERS: ATTEND Internal Medicine Critical Care Medicine | DX: G47.33 Obstructive sleep apnea (adult) (pediatric) (principal) ==

== ENCOUNTER → 2023-08-14 | Outpatient (CLI) | payer MEDICARE, BC | LOC: M SLEEP 20:00 | PROVIDERS: ATTEND Internal Medicine Critical Care Medicine | DX: G47.33 Obstructive sleep apnea (adult) (pediatric) (principal) ==

== ENCOUNTER → 2023-08-24 | Outpatient (CLI) | payer MEDICARE, BC | LOC: M SLEEP 20:00 | PROVIDERS: ATTEND Internal Medicine Critical Care Medicine | DX: G47.33 Obstructive sleep apnea (adult) (pediatric) (principal) ==

== ENCOUNTER → 2023-12-14 | Outpatient (CLI) | payer MEDICARE, BC | LOC: M RAD 14:55 | PROVIDERS: ATTEND Nurse Practitioner Family | DX: L40.0 Psoriasis vulgaris (principal) ==

== ENCOUNTER → 2024-05-04 | Outpatient (CLI) | payer MEDICARE, BC | LOC: M RAD 09:16 | PROVIDERS: ATTEND Internal Medicine Critical Care Medicine | DX: Z87.891 Personal history of nicotine dependence (principal) ==